=== PATIENT | male | born 1970 | race Caucasian/White ===

== ENCOUNTER 2016-09-07 10:02 | Day surgery (SDC) | END 2016-09-08 16:10 | disposition home or self-care (01) | DX: M19.172 Post-traumatic osteoarthritis, left ankle and foot (principal) | CPT/HCPCS: 29898; 29899; 73610; 86999; 97116; 97163; C1713; J0330; J0690; J1100; J1170; J2250; J2405; J2710; J2765; J2795; J3010; J7030 ==